=== PATIENT | male | born 1985 | race Caucasian/White ===

== ENCOUNTER 2016-04-16 20:47 | Emergency (ER) ==
[2016-04-16 21:02] VITALS: BP 166/107
--- NOTE | 2016-04-16 22:33 | PROVIDER DOCUMENTATION ---
HPI-General Adult <DamonkalenFayeawa Trevino - Last Filed: 04/16/16 22:32> - General Source: patient - History of Present Illness -Gen Adult Nature of Presenting Problems: 30 year old M presents to the ED with a cc of a "black spot" with an onset of this evening. PT is fearful that he might have diabetes. Location of Pain/Injury: reports: feet Quality of Pain: reports: none Severity: reports: mild Onset/Duration: reports: this evening Timing: reports: still present Similar Symptoms Previously?: No Recently seen or treated by another doctor?: No <Marielos Washington - Last Filed: 04/16/16 22:50> - General Chief Complaint: Extremity Injury Stated Complaint: LT FT GENERAL Time Seen by Provider: 04/16/16 22:27 Allergies/Adverse Reactions: Patient Allergies Allergy/AdvReac Type Severity Reaction Status Date / Time acetaminophen [From Tylenol] AdvReac Mild HEADACHE Verified 04/16/16 22:17 Home Medications: Home Medication List Medication Instructions Recorded Confirmed Last Taken Type Gabapentin [Neurontin] 800 mg PO TID 02/17/12 04/16/16 04/16/16 19:00 History Albuterol Sulfate Inhaler 2 puff INH Q6H PRN PRN 04/05/14 04/16/16 1 Day Ago History [Ventolin Hfa] Review of Systems - Adult - REVIEW OF SYSTEMS - ADULT Constitutional: denies: chills, fever Eyes: reports: no symptoms reported Ears, Nose, Mouth & Throat: reports: no symptoms reported Cardiovascular: reports: no symptoms reported Respiratory: reports: no symptoms reported Gastrointestinal: denies: nausea, vomiting Genitourinary: reports: no symptoms reported Musculoskeletal: denies: muscle aches, muscle weakness Integumentary: reports: skin sores/ulcer. denies: skin thickening Neurological: reports: no symptoms reported Psychiatric: reports: no symptoms reported Endocrine: reports: no symptoms reported Hematologic/Lymphatic: reports: no symptoms reported Allergic/Immunologic: reports: no symptoms reported All Other Systems: Reviewed and Negative <Marielos Washington - Last Filed: 04/16/16 22:50> Past History - Adult - PAST MEDICAL HISTORY-ADULT Major Childhood Illnesses: reports: denies history Cardiovascular: reports: denies history, HTN Respiratory: reports: COPD Gastrointestinal: reports: denies history Obstetrical/Gynecological: reports: denies history Genitourinary: reports: denies history Musculoskeletal: reports: chronic pain Neurological: reports: denies history Psychiatric: reports: depression Endocrine/Immune: reports: denies history Other Conditions: reports: denies history - PRIOR SURGERIES/PROCEDURES Surgical/Procedure History: reports: orthopedic (extremity) - IMMUNIZATION STATUS Childhood Immunizations: UTD, See Nurse Assessment Flu Vaccine: See Nurse Assessment - FAMILY HISTORY Family History: CAD under 55yo <Faye Simpson - Last Filed: 04/16/16 22:32> - PAST MEDICAL HISTORY-ADULT Review of Records: reports: Nursing Assessment Review, Medications Reviewed Major Childhood Illnesses: reports: denies history Cardiovascular: reports: HTN Respiratory: reports: COPD Gastrointestinal: reports: pancreatitis Musculoskeletal: reports: chronic pain Psychiatric: reports: depression Endocrine/Immune: reports: thyroid disorder - PRIOR SURGERIES/PROCEDURES Surgical/Procedure History: reports: orthopedic (extremity), back/neck - IMMUNIZATION STATUS Childhood Immunizations: See Nurse Assessment Flu Vaccine: See Nurse Assessment - SOCIAL HISTORY Smoking: cigarettes, greater than 1 pack/day Provider spent 3-5 mins advising pt. on dangers of tobacco.: Discussed manners to quit use, and f/u contacts for add'l counseling. Substance Use: none/never Alcohol Use Frequency: occasionally <Marielos Washington - Last Filed: 04/16/16 22:50> Physical Exam-General - PHYSICAL EXAM-ADULT Initial Vital Signs Reviewed: Yes - CONSTITUTIONAL General Appearance: appears well, alert, no apparent distress - RESPIRATORY Respiratory: no respiratory distress - CARDIOVASCULAR Cardiovascular: regular rate, rhythm - MUSCULOSKELETAL Extremity: normal inspection - SKIN Integumentary: other (blood blister) - PSYCHIATRIC Psych/Mental Status: normal mood/affect, normal thought content, normal thought process, oriented x 3 <Marielos Washington - Last Filed: 04/16/16 22:50> Progress - PLAN OF CARE/RESULTS Progress/Plan/Lab Results: Vital Signs - 24 hr 04/16/16 21:01 Temperature 98.4 F Pulse Rate 104 H Respiratory 18 Rate Blood Pressure 166/107 O2 Sat by Pulse 98 Oximetry Pt given results and will be d/c home w/o rx to follow up with PCP. Pt verbally understood instructions. PT remained clinically stable throughout the course of the ED stay and will return if symptoms worsen. <Marielos Washington - Last Filed: 04/16/16 22:50> Departure - Departure Time of Disposition Order: 22:33 Certified Medical Emergency: Emergent <Faye Simpson - Last Filed: 04/16/16 22:32> <Marielos Washington - Last Filed: 04/16/16 22:50> - Departure DIAGNOSIS: Blood blister Disposition: HOME 01 Condition: Stable Additional Instructions: ED Follow Up Instructions: You have been treated by a care provider in the Emergency Department. These instructions are being provided to you so you can have an understanding of how to care for yourself upon discharge. Upon discharge from the Emergency Department, you are responsible for making arrangements for follow-up care by a physician of your choice. Take all prescribed medications as directed. Return to the Emergency Department immediately for any new or worsening symptoms. You may call the Physician Referral phone number at [phone] to obtain a list of Physicians who are taking new patients. Referrals: CAS THOMPSON CRNP [Primary Care Provider] - Instructions: Blister Attestation - Scribe Verification/Attestation Scribe:: Marielos Washington Acting as Scribe for:: Faye Simpson Scribe documention review:: This chart was documented by a scribe and accurately reflects the service the provider performed and the decisions made by the provider. <Marielos Washington - Last Filed: 04/16/16 22:50> Physician Attestation - Physician Attestation I, the provider, attest to the following statement:: Faye Simpson Physician documentation Attestation:: This documentation recorded by the scribe accurately reflects the service I personally performed and the decisions made by me. <Marielos Washington - Last Filed: 04/16/16 22:50>
== END 2016-04-16 22:35 | disposition home or self-care (01) ==
LOC: ED 20:47
DX: S90.822A Blister (nonthermal), left foot, initial encounter (principal); L98.9 Disorder of the skin and subcutaneous tissue, unspecified; J44.9 Chronic obstructive pulmonary disease, unspecified; I10 Essential (primary) hypertension; G89.29 Other chronic pain; F32.9 Major depressive disorder, single episode, unspecified; E07.9 Disorder of thyroid, unspecified; F17.210 Nicotine dependence, cigarettes, uncomplicated; Z71.6 Tobacco abuse counseling; Z79.899 Other long term (current) drug therapy

== ENCOUNTER 2018-10-10 21:22 | Observation (INO) ==
[2018-10-10 21:57] LABS: BASO# 0.02 X1000 (0.0-0.2); BASO% 0.1 % (0.0-0.8); EOS# 0.07 X1000 (0.0-0.7); EOS% 0.4 % (0.0-10.0); HEMATOCRIT 47.4 % (42.0-52.0); HEMOGLOBIN 15.7 g/dL (14.0-18.0); IMM GRAN# 0.09 X1000 (0.0-0.04); IMM GRAN% 0.6 % (0.0-0.5); LYMPH% 16.1 % (20.5-51.1); MCH 29.3 PG (27-31); MCHC 33.1 g/dL (33-37); MCV 88.4 FL (81-99); MONO# 1.21 X1000 (0.11-0.59); MONO% 7.5 % (1.7-9.3); MPV 10.5 FL (7.4-10.4); NEUT# 12.15 X1000 (1.4-6.5); NEUT% 75.3 % (42.2-75.2); PLT 262 X1000 (130-400); RBC 5.36 XMIL (4.7-6.1); WBC 16.14 X1000 (4.8-10.8)
[2018-10-10 22:45] LABS: AGAP 13; ALB/GLOB RATIO 0.9; ALBUMIN 3.8 g/dL (3.5-5.0); ALKALINE PHOSPHATASE 70 U/L (32-122); BUN 17 mg/dL (8-22); CALCIUM 9.8 mg/dL (8.8-10.2); CHLORIDE 97 mmol/L (98-107); COSMO 277; ESTIMATED GFR > 60; GLUCOSE 94 mg/dL (70-104); GOT 26 U/L (10-34); GPT 22 U/L (10-44); POTASSIUM 4.3 mmol/L (3.5-5.1); SODIUM 138 mmol/L (136-145); TCO2 28 mmol/L (25-35); TOTAL BILIRUBIN 0.21 mg/dL (0.20-1.00); TOTAL PROTEIN 7.8 g/dL (6.3-8.3)
[2018-10-10] MEDS ORDERED: NS 1,000 ML IV ONE (22:59)
--- NOTE | 2018-10-10 22:59 | PROVIDER DOCUMENTATION ---
HPI-Respiratory General - General Chief Complaint: Return/Recheck Stated Complaint: RECHECK/FEEL'S WORSE, COLD SX, SOB, HEADACHE Time Seen by Provider: 10/10/18 22:46 Allergies/Adverse Reactions: Patient Allergies Allergy/AdvReac Type Severity Reaction Status Date / Time acetaminophen [From Tylenol] AdvReac Mild HEADACHE Verified 10/01/18 17:16 Home Medications: Home Medication List Medication Instructions Recorded Confirmed Last Taken Type Gabapentin [Neurontin] 600 mg PO 4XDAY 02/17/12 10/11/18 10/30/17 History Methadone 100 mg PO DAILY 09/19/18 10/11/18 Unknown History Butalbital/APAP/Caffeine [Fioricet] 1 tab PO DAILY PRN 10/01/18 10/11/18 Unknown History - History of Present Illness-Resp Nature of Presenting Problem: This is a 32yo male who presents with CC of shortness of breath and throat congestion. The patient reports that he did feel feverish at home. He reports he was seen last week for bronchitis and has been trying to use steroids and a z- pac, but has not improved. Quality of Pain: reports: other (mild chest discomfort) Onset/Duration: reports: last week (progressive) Cough Quality/Degree: reports: other (cough, feels like he needs to bring up sputum but cannont) Current Respiratory Medication Therapy: Initiated other oral steroid, Initiated albuterol Associated Symptoms: reports: cough, short of breath Review of Systems - Adult - REVIEW OF SYSTEMS - ADULT Constitutional: reports: fever Ears, Nose, Mouth & Throat: reports: other (throat congestion). denies: ear pain, epistaxis Cardiovascular: reports: other (chest discomfort) Respiratory: reports: cough Gastrointestinal: denies: abdominal pain Genitourinary: denies: dysuria Musculoskeletal: denies: muscle aches Neurological: denies: numbness Past History - Adult - PAST MEDICAL HISTORY-ADULT Review of Records: reports: Old Records Reviewed Major Childhood Illnesses: reports: denies history Cardiovascular: reports: HTN Respiratory: reports: COPD Gastrointestinal: reports: GERD, pancreatitis Obstetrical/Gynecological: reports: denies history Genitourinary: reports: denies history Musculoskeletal: reports: arthritis, chronic pain, neck/back injury Neurological: reports: other (sciatica) Psychiatric: reports: depression Endocrine/Immune: reports: thyroid disorder Other Conditions: reports: denies history - PRIOR SURGERIES/PROCEDURES Surgical/Procedure History: reports: orthopedic (extremity) (ACL; L knee), back/neck - IMMUNIZATION STATUS Childhood Immunizations: See Nurse Assessment Flu Vaccine: See Nurse Assessment - FAMILY HISTORY Family History: cancer, CAD under 55yo, other (lung cancer lung disease) Physical Exam-General - CONSTITUTIONAL General Appearance: appears well, mild distress - EYES Eyes: negative: conjuctival exudate - HEAD, EARS, NOSE, MOUTH & THROAT HENMT: normocephalic/atraumatic - NECK Neck: supple, normal inspection - RESPIRATORY Respiratory: wheezing (bilateral) - CARDIOVASCULAR Cardiovascular: regular rate, rhythm, no edema - GASTROINTESTINAL (ABDOMEN) Abdominal Exam: non tender, soft - NEUROLOGIC Neurologic: grossly normal - PSYCHIATRIC Psych/Mental Status: normal mood/affect Progress - PLAN OF CARE/RESULTS Progress/Plan/Lab Results: Vital Signs - 8 hr 10/10/18 21:29 10/11/18 01:15 Temperature 99.9 F H Pulse Rate 125 H 95 H Respiratory Rate 16 16 Blood Pressure 132/88 O2 Sat by Pulse Oximetry 92 L Laboratory Results - last 24 hr 10/10/18 10/10/18 10/10/18 21:40 21:50 22:24 WBC 16.14 H RBC 5.36 Hgb 15.7 Hct 47.4 MCV 88.4 MCH 29.3 MCHC 33.1 RDW Std Deviation 14.0 Plt Count 262 MPV 10.5 H Immature Gran % (Auto) 0.6 H Neut % (Auto) 75.3 H Lymph % (Auto) 16.1 L [place] % (Auto) 7.5 Eos % (Auto) 0.4 Baso % (Auto) 0.1 Immature Gran # (Auto) 0.09 H Neut # (Auto) 12.15 H Lymph # (Auto) 2.60 [place] # (Auto) 1.21 H Eos # (Auto) 0.07 Baso # (Auto) 0.02 Sodium 138 Potassium 4.3 Chloride 97 L Carbon Dioxide 28 Anion Gap 13 BUN 17 Creatinine 1.0 Estimated GFR/1.73 m2 > 60 BUN/Creatinine Ratio 17 Glucose 94 Calculated Osmolality 277 Calcium 9.8 Total Bilirubin 0.21 AST 26 ALT 22 Alkaline Phosphatase 70 Total Protein 7.8 Albumin 3.8 Globulin 4.0 Albumin/Globulin Ratio 0.9 Plasma Lactate 1.5 Orders Category Date Time Status CHEST-2 VIEWS [RAD] Stat Exams 10/10/18 22:47 Taken BLOOD CULTURE [BLDCUL] Stat Lab 10/10/18 22:24 Ordered CBC WITH DIFF [HEME] Stat Lab 10/10/18 21:50 Completed CMP [COMPREHENSIVE METABOLIC PANEL] [CHEM] Stat Lab 10/10/18 21:40 Completed LACTATE, PLASMA [CHEM] Stat Lab 10/10/18 22:24 Completed 0.9% Sodium Chloride Inj [Ns] 1,000 ml Med 10/10/18 22:59 Discontinued IV 999 mls/hr Albuterol 2.5MG/Ipratrop 0.5MG [Duoneb (A & A)] Med 10/11/18 00:44 D iscontinued 3 ml INH NOW ONE Levofloxacin 500 mg/D5w [Levaquin 500 mg/D5w] Med 10/11/18 02:05 Active 500 mg in 100 ml IV NOW Prednisone Med 10/10/18 23:14 Discontinued 40 mg PO NOW ONE Aerosol Treatments Routine Oth 10/11/18 00:44 Completed Aerosol Treatments Stat Oth 10/11/18 00:44 Completed Result Diagrams: 10/10/18 21:50 10/10/18 21:40 - REASSESSMENT Reassessment #1 Status: unchanged (Patient given 20mg of steroids to complete 40mgs total from this mornings home dose. Patient desat while sitting off O2 to 89% and low 90s%. He still is feeling tired.) Reassessment #2 Status: improving (Patient with some improvement after fluids. He is still on O2 2L NC, will trial walking pulse ox. Pulmonary embolism considered Low risk wells score. Will trial duonebs.) Reassessment #3 Status: improving (Patient improving on Duonebs. Will trial walking pulse-ox after completing nebulizer.) Reassessment #4 Status: unchanged (Patient still with low saturations after breathing treatments. Will plan to admit due to hypoxia. Discussed with hospitalist team who accepted the patient.) Departure - Departure Date of Disposition Decision: 10/11/18 Time of Disposition Decision: 02:22 DIAGNOSIS: COPD exacerbation, Hypoxia Disposition: ADMITTED INPATIENT 09 Certified Medical Emergency: Emergent Condition: Good Referrals and Follow-Ups: None,PCP [Primary Care Provider] - - Critical Care Note This patient required my direct & personal management of CC.: No Attestation - Physician/ HAILEE Attestation Patient care was provided by Advanced Practice Provider:: No The physician spent face to face time with patient:: Yes Advanced Practice Provider documentation review:: Supervising physician onsite and consulted in the evaluation and care of this patient. The physician did have a face to face encounter with the patient.
[2018-10-10] MEDS ORDERED: PREDNISONE PO ONE (23:14)
[2018-10-11] MEDS ORDERED: DUONEB (A & A) INH ONE (00:44)
[2018-10-11] MEDS ORDERED: LEVAQUIN 500 MG/D5W 500 MG/100 ML IVPB IV ONE (02:05)
--- NOTE | 2018-10-11 05:32 | HISTORY AND PHYSICAL ---
PRIMARY CARE PHYSICIAN: None. CHIEF COMPLAINT: Shortness of breath. HISTORY OF PRESENTING ILLNESS: A 32-year-old male with a history of COPD and chronic low back pain who presented to emergency department with several days history of having worsening shortness of breath. The patient, apparently, had been to the ER previously and was put on p.o. antibiotics and sent home. However, he did have any improvement. He was still was coughing and was short of breath. He was evaluated in the emergency department. It seemed that he was having COPD exacerbation. Subsequently, we will place him for observation for further evaluation and management. At the time of my examination, patient denied any headache, fever, chills, chest pain, hemoptysis, melena, weight changes, but complained of shortness of breath and coughing, and not feeling well. PAST MEDICAL HISTORY: Includes COPD, back pain. PAST SURGICAL HISTORY: Back surgery, left ACL repair. ALLERGIES: No known drug allergies. CURRENT MEDICATIONS: He does not recall. He states he quit a methadone. SOCIAL HISTORY: A 15+ pack-years history of smoking. Denies any history of alcohol or illicit drug use. FAMILY HISTORY: Positive for coronary disease in Father. REVIEW OF SYSTEMS: Fourteen-point review of system as listed in HPI. Other systems negative. PHYSICAL EXAMINATION: GENERAL: Cooperative, friendly male. He is resting more comfortably now. VITAL SIGNS: Temperature 99.9 degrees, pulse 125, respirations 16, blood pressure 132/88. HEENT: Atraumatic, normocephalic. Extraocular movements intact. PERRLA. NECK: No masses. CHEST: Scattered wheezes. CARDIOVASCULAR: Regular rate and rhythm. ABDOMEN: Soft positive bowel sounds. EXTREMITIES: No edema. NEUROLOGIC: He is awake, alert, oriented x3. GENITOURINARY: No bladder distention. SKIN: Warm. LABORATORIES AND STUDIES: WBC 16.14, hemoglobin 15.7, hematocrit 47.4, platelets 262,000. Sodium 138, potassium 4.3, chloride 97, CO2 is 28, BUN is 17, creatinine is 1.0. Glucose is 94. ASSESSMENT: A 32-year-old male with a history of chronic obstructive pulmonary disease and chronic low back pain, who had presented to the emergency department with several days history of worsening shortness of breath and cough. He was evaluated in the emergency department and, due to his presenting symptoms, we will place him in for observation for further evaluation and management. 1. Mild chronic obstructive pulmonary disease exacerbation. 2. Chronic low back pain. 3. Ongoing tobacco abuse. PLAN: 1. We will admit patient to medical floor with telemetry. 2. Continue with duo nebs, IV Solu-Medrol, IV antibiotics. 3. We will continue with giving patient adequate pain control. 4. Counseled patient on smoking cessation. 5. Put patient on DVT prophylaxis SCD. 6. We will continue to follow and reassess, make further recommendation based on patient's clinical course. cc: Mayito Gamez MD
[2018-10-11] MEDS ORDERED: ZOFRAN IV PRN (06:36)
[2018-10-11] MEDS ORDERED: MORPHINE IV PRN (06:36)
[2018-10-11] MEDS: DUONEB (A & A) INH SCH ×5 (07:40→22:58)
--- NOTE | 2018-10-11 08:39 | Diag Imaging Result Doc PS360 ---
EXAM: CHEST-2 VIEWS INDICATION: cough, tachycardia TECHNIQUE: 2 views COMPARISON: 10/01/2018 FINDINGS: The lungs are grossly clear. There is no discrete pleural fluid collection or pneumothorax. The cardiomediastinal silhouette and central vasculature are grossly unremarkable. IMPRESSION: No evidence of acute pathology by plain radiograph. Electronically signed by Levon Kemp 10/11/2018 8:37 AM
[2018-10-11] MEDS: NEURONTIN PO SCH ×4 (08:48→20:02)
[2018-10-11] MEDS: SOLU-MEDROL IV SCH ×2 (08:48→17:51)
[2018-10-11] MEDS ORDERED: METHADONE PO SCH (09:00)
--- NOTE | 2018-10-11 10:14 | PROGRESS NOTE ---
DATE: 10/11/2018 SUBJECTIVE: This morning Mr. Emery refers to be doing a little bit better. He got admitted early on today because of progressively worsening shortness of breath and cough. Mr. Emery smokes almost 2 packs of cigarettes per day for the past 10 years. He was in the ER about a week ago. He was sent home on Z-Mychal, steroids and some cough syrup, but he said this did not improve. He just continued to get worse. OBJECTIVE: Current vital Signs: Blood pressure is 124/74, pulse of 75, respirations 16, temperature is 98.9 degrees. General: Mr. Emery is a 32-year-old male. He is in bed in no distress. Mucosa is pink and moist. Anicteric. Acyanotic. Neck: Supple. Chest: Air entry is bilaterally reduced. There is diffuse end expiratory wheezing in both lung espitia. There is also some associated crackles. There is prolonged expiratory phase of respiration. Cardiovascular: Regular rate and rhythm. Abdomen: Soft. Extremities: No pedal edema. LABORATORY DATA: Has been reviewed. WBC is 16.14. CURRENT MEDICATIONS: Have all been reviewed. ASSESSMENT: 1. Acute hypoxemic respiratory failure on presentation secondary to chronic obstructive pulmonary disease exacerbation. Patient is on antibiotics, bronchodilation and steroid therapy. 2. Tobacco use and abuse. Cessation has been advised and patient will be started on nicotine patch. 3. Chronic methadone use. This has been verified by the attending nurse from patient's pain clinic and he has been started on his medications. cc: Luc Nguyen MD MTDD
[2018-10-11] MEDS: NICODERM PATCH TD PRN (13:22)
[2018-10-11] MEDS: TORADOL IV PRN (20:02)
[2018-10-12] MEDS: SOLU-MEDROL IV SCH ×3 (00:18→15:29)
[2018-10-12] MEDS: TORADOL IV PRN (01:50)
[2018-10-12] MEDS: LEVAQUIN 750 MG/D5W 750 MG/150 ML IVPB IV SCH ×2 (01:50→05:46)
[2018-10-12] MEDS: DUONEB (A & A) INH SCH ×6 (03:50→22:55)
[2018-10-12] MEDS: METHADONE PO SCH (05:57)
[2018-10-12 06:42] LABS: BASO# 0.01 X1000 (0.0-0.2); HEMATOCRIT 45.5 % (42.0-52.0); HEMOGLOBIN 14.5 g/dL (14.0-18.0); IMM GRAN% 0.4 % (0.0-0.5); LYMPH# 1.04 X1000 (1.2-3.4); LYMPH% 4.5 % (20.5-51.1); MCH 28.5 PG (27-31); MCHC 31.9 g/dL (33-37); MCV 89.6 FL (81-99); MONO# 0.69 X1000 (0.11-0.59); MPV 11.7 FL (7.4-10.4); NEUT# 21.27 X1000 (1.4-6.5); NEUT% 92.1 % (42.2-75.2); PLT 213 X1000 (130-400); RBC 5.08 XMIL (4.7-6.1); RDW 14.6 % (11.5-14.5); WBC 23.11 X1000 (4.8-10.8)
[2018-10-12 07:24] LABS: AGAP 16; BUN 18 mg/dL (8-22); CALCIUM 10.2 mg/dL (8.8-10.2); CHLORIDE 99 mmol/L (98-107); COSMO 280; CREATININE 0.9 mg/dL (0.7-1.2); ESTIMATED GFR > 60; GLUCOSE 184 mg/dL (70-104); POTASSIUM 4.5 mmol/L (3.5-5.1); SODIUM 137 mmol/L (136-145); TCO2 22 mmol/L (25-35)
[2018-10-12] MEDS: NEURONTIN PO SCH ×4 (09:40→21:21)
[2018-10-12 11:00] LABS: BANDS 2 % (0-1); LYMPHS 6 % (21-51); MONO 2 % (1-9); SEGS 90 % (42-75)
[2018-10-12] MEDS ORDERED: TUMS PO ONE (12:59)
[2018-10-12] MEDS ORDERED: FIORICET PO PRN (13:52)
[2018-10-12] MEDS ORDERED: PRILOSEC PO ONE (14:21)
--- NOTE | 2018-10-12 14:21 | PROGRESS NOTE ---
DATE: 10/12/2018 SUBJECTIVE: This morning, Mr. Emery referred to be doing a lot better from a respiratory standpoint, but he has multiple complaints about pains everywhere. The mother was at the bedside as well as the girlfriend. OBJECTIVE: Current Vital Signs: Blood pressure is 123/62, pulse of 78, respirations 21, temperature 98.8 degrees, the patient is saturating 93% on 2 L. General: Mr. Emery is a 32-year- old gentleman. He was in bed. No distress. HEENT: Mucosa is pink and moist. Anicteric. Acyanotic. Neck: Supple. Chest: Air entry is bilaterally reduced. There is still diffuse expiratory wheezing with prolonged expiratory phase of respiration. Cardiovascular: Regular rate and rhythm. GI: Abdomen is soft, nontender. Bowel sounds present. Extremities: No pedal edema. 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 LABORATORY DATA: WBC is up to 23.11, hemoglobin is 14.5, platelet count of 213,000. Chemistry is reviewed and is completely normal, except for glucose of 184. So far, blood cultures have been 48 hours negative. ASSESSMENT: 1. Acute hypoxemic respiratory failure secondary to chronic obstructive pulmonary disease exacerbation. 2. Chronic obstructive pulmonary disease, in [id number] exacerbation on presentation. The patient is on bronchodilation, steroid, and antibiotic therapy. 3. Tobacco use and abuse prior to hospitalization. Cessation has been counseled. The patient is currently on nicotine patch. 4. Chronic pain syndrome, on methadone. This has been started, and even with not withstanding this, Mr. Emery refers to be in extreme pain all over, and his mother who was at the bedside also thinks that we are basically not doing anything for her son's pain. I tried my best to let them know that the 100 mg of methadone is a pretty big dose, and that since Mr. Emery said it was just started recently, he has to give it time for it to work. For now, we will put him on a very low dose of [place] for the breakthrough pains that he has been having. cc: Luc Nguyen MD
[2018-10-12] MEDS: NORCO-7.5 PO PRN ×2 (15:29→21:21)
[2018-10-12] MEDS: NICODERM PATCH TD PRN (16:43)
[2018-10-13] MEDS: SOLU-MEDROL IV SCH ×2 (02:06→10:18)
[2018-10-13] MEDS: DUONEB (A & A) INH SCH ×3 (03:27→11:13)
[2018-10-13] MEDS: NORCO-7.5 PO PRN ×2 (03:40→10:18)
[2018-10-13] MEDS: METHADONE PO SCH (05:59)
[2018-10-13] MEDS ORDERED: PRILOSEC PO SCH (07:00)
[2018-10-13 07:42] VITALS: BP 132/69
[2018-10-13] MEDS: LEVAQUIN 750 MG/D5W 750 MG/150 ML IVPB IV SCH (10:18)
[2018-10-13] MEDS: NEURONTIN PO SCH (10:18)
--- NOTE | 2018-10-13 15:30 | DISCHARGE SUMMARY ---
ADMISSION DATE: 10/11/2018 DISCHARGE DATE: 10/13/2018 DISPOSITION: Home. FOLLOW-UP: Dr. Lujan. CONSULTATION DURING THIS ADMISSION: None. IMAGING STUDIES OF SIGNIFICANCE: A chest x-ray showed no evidence of acute pathology. ADMISSION DIAGNOSES: 1. Mild chronic obstructive pulmonary disease exacerbation. 2. Chronic lower back pain. 3. Ongoing tobacco use. DIAGNOSES AT THE TIME OF DISCHARGE: 1. Acute hypoxemic respiratory failure improved. 2. Chronic obstructive pulmonary disease, in moderate to severe exacerbation on presentation, improved. 3. Tobacco use and abuse. 4. Chronic pain syndrome, on methadone. DISCHARGE MEDICATIONS: 1. Gabapentin 600 mg p.o. 4 times per day. 2. Methadone 100 mg p.o. daily. 3. Fioricet. 4. Prednisone 20 mg p.o. daily. 5. Omeprazole 40 mg p.o. daily. 6. Levaquin 500 p.o. daily. 7. Spiriva inhaler 1 puff daily. 8. Albuterol inhaler 2 puffs q.6h p.r.n. 9. DuoNeb q.4 h. p.r.n. PRESENTING COMPLAINT: Shortness of breath. HISTORY OF PRESENTING COMPLAINT: Mr. Emery is a 32-year-old gentleman with a history of tobacco abuse, known COPD, who came to the emergency department because of shortness of breath. Upon presentation, patient was evaluated and was found to have O2 saturation of 92% on room air, and he was remarkably wheezing. He was thought to be in COPD exacerbation. He was subsequently admitted for further medical care. HOSPITAL COURSE: Mr. Emery was admitted to the medical floor. He was started on broad-spectrum IV antibiotics, steroids, and bronchodilation therapy, and Respiratory Therapy was consulted. Mr. Emery continued to remarkably improve during the hospital course. He did have issues with his pain management during the hospital course, and he was very adamant that he needed something for his lower back, despite the fact that he was on 100 mg of methadone. Mr. Emery's bronchospasm resolved. This morning, he feels a whole lot better. He denies any new complaints. We think he is stable enough to go home. DISCHARGE VITAL SIGNS: Blood pressure 132/69, pulse of 82, respirations 16, the patient is saturating 95% on room air. DISCHARGE CONDITION: We think Ms Emery is currently stable for discharge. DISCHARGE INSTRUCTIONS: 1. Mr. Emery will follow up with Dr. Lujan or any mdm developer of discharge. 2. Specifically, we stressed the utmost need for tobacco cessation with Mr. Emery. COORDINATION TIME: Time spent for discharge is 38 minutes. cc: MD Franco Rivas MD MTDD
== END 2018-10-13 15:22 | disposition home or self-care (01) ==
LOC: 3N 21:22 → ED 21:22 → SUATTDRO 10-11 06:04
PROVIDERS: ATTEND Internal Medicine